=== PATIENT | female | born 1990 | race Caucasian/White ===

== ENCOUNTER 2022-01-20 23:02 | Emergency (ER) | payer MEDICAID ==
[2022-01-21] MEDS ORDERED: Ketorolac 30 MG/ML SDV IM ONE (01:37)
[2022-01-21] MEDS ORDERED: Cyclobenzaprine 5 MG Tab PO STA (01:37)
[2022-01-21] MEDS ORDERED: Cephalexin 500 MG Cap PO STA (02:00)
== END 2022-01-21 02:16 | disposition home or self-care (01) ==
LOC: MW.ED 23:02
DX: M54.41 Lumbago with sciatica, right side (principal); N39.0 Urinary tract infection, site not specified
CPT/HCPCS: 81001; 81025; 87086; 87088; 87186; 96372; 99283; A9270; J1885